=== PATIENT | male | born 1955 | race Caucasian/White ===

== ENCOUNTER 2018-03-01 13:36 | Emergency (ER) | payer OTHER ==
[~2018-03-01] VITALS: Ht 177.8 cm; Wt 95.3 kg
[2018-03-01] MEDS ORDERED: PREDNISONE50 MG PO (14:28)
[2018-03-01] MEDS ORDERED: ZPAK PO (14:28)
[2018-03-01] MEDS ORDERED: VENTOLIN HFA 1818 GM INH (14:28)
[2018-03-01] MEDS ORDERED: TESSALON PERLE100 M1 PO (14:28)
[2018-03-01 14:42] VITALS: BP 137/81
== END 2018-03-01 14:45 | disposition home or self-care (01) ==
LOC: M.ERS 13:36
DX: J18.1 Lobar pneumonia, unspecified organism (principal); Z88.0 Allergy status to penicillin